=== PATIENT | male | born 1995 | race Caucasian/White ===

== ENCOUNTER 2017-10-18 03:23 | Emergency (ER) | payer OTHER ==
[2017-10-18] MEDS ORDERED: ONDANSETRON 4 MG TAB.RAPDIS PO ONE (03:44)
[2017-10-18] MEDS ORDERED: LIDOCAINE 1% INJ-PF (10 MG/ML) 30 ML SDV INJ ONE (03:44)
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
[2017-10-18 04:16] LABS: APPEARANCE,URINE CLEAR; BILIRUBIN,URINE NEGATIVE (NEGATIVE); COLOR,URINE COLORLESS; GLUCOSE, URINE NEGATIVE (NEGATIVE); KETONES,URINE NEGATIVE (NEGATIVE); LEUKOCYTE ESTERASE,URINE NEGATIVE (NEGATIVE); NITRITE,URINE NEGATIVE (NEGATIVE); PROTEIN,URINE NEGATIVE (NEGATIVE); URINE SPECIFIC GRAVITY 1.002; UROBILINOGEN,URINE NEGATIVE mg/dL (<2.0)
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
[2017-10-18] MEDS ORDERED: ONDANSETRON ODT 4 MG TAB (6 TAB/ER DISP) PO PRN (04:42)
[2017-10-18 04:54] VITALS: BP 121/53
== END 2017-10-18 05:00 | disposition home or self-care (01) ==
LOC: ER 03:23
DX: S80.219A Abrasion, unspecified knee, initial encounter (principal); S61.214A Laceration without foreign body of right ring finger without damage to nail, initial encounter; F10.920 Alcohol use, unspecified with intoxication, uncomplicated; S05.12XA Contusion of eyeball and orbital tissues, left eye, initial encounter; R51 Headache; R11.0 Nausea; S09.90XA Unspecified injury of head, initial encounter; S01.81XA Laceration without foreign body of other part of head, initial encounter; S01.512A Laceration without foreign body of oral cavity, initial encounter; Y04.0XXA Assault by unarmed brawl or fight, initial encounter
CPT/HCPCS: 99284; 81001; 70450; 70486; 72125; 12013; 12001; S0119; J3490